=== PATIENT | male | born 1970 | race Two or more races ===

== ENCOUNTER 2022-04-05 12:19 | Emergency (ER) | payer MEDICAID ==
[~2022-04-05] VITALS: Ht 167.6 cm; Wt 76.5 kg
[2022-04-05 13:40] VITALS: BP 112/77
[2022-04-05] MEDS ORDERED: IBUP800T27 PO (15:06)
== END 2022-04-05 15:03 | disposition home or self-care (01) ==
LOC: ER 12:19
DX: G44.319 Acute post-traumatic headache, not intractable (principal)
CPT/HCPCS: 70450